=== PATIENT | male | born 1945 | race Caucasian/White ===

== ENCOUNTER → 2024-04-21 | Outpatient (CLI) | payer MEDICARE, SELFPAY ==
--- NOTE | 2024-04-21 | IMM_PTH ---
PATIENT: BENITA GARCIA LOC: [facility] U#:[id number] AGE/SX: 78/M ROOM: RE04/21/[address]: Dr. Burke Bentley MD : 1945 BED: DIS: 04/21/2024 SPEC #: [id number] RECD: 04/25/24 12:24 STATUS: ELA REQ #: [id number] FRANCISCO: 04/21/24 00:[address]: Burke Bentley DEPT: IMMUNOHISTOCHEMISTRY RECD BY: Raji Penn Tissues: D - PROSTATE LEFT E - PROSTATE LEFT F - PROSTATE LEFT Procedures: CD45 (add) CK8 (add) Vimentin (add) Pankeratin (initial) CD68 (ADD) PHYSICIAN & INSTITUTION [place] [address] SPECIMEN INFORMATION: Tissue Source: D- Left apex, E- Left mid, F- Left base Clinical Info: Elevated PSA Specimen Number: [id number] D, E, F CPT code: 16202u5,46273w44 METHODOLOGY: Deparaffinized sections of prefer/formalin-fixed tissue or PAP/DQ stained slides are incubated with monoclonal/polyclonal antibodies/oligonucleotide probes. Localization is made via biotin free immunoperoxidase method. Appropriate controls are performed and reacted as expected. Results on target cell population are indicated in the following table: RESULTS: ANTIBODY / CLONE RESULT Block D AE1-3 (AE1/AE3/PCK26) negative CK8 ([id number]) negative CD45 (RP2/18) positive Vimentin (V9) positive CD68 (KP-1) positive Block E AE1-3 (AE1/AE3/PCK26) negative CK8 ([id number]) negative CD45 (RP2/18) positive Vimentin (V9) positive CD68 (KP-1) positive Block F AE1-3 (AE1/AE3/PCK26) negative CK8 (89ziwlL16) negative CD45 (RP2/18) positive Vimentin (V9) positive CD68 (KP-1) positive These tests were developed and their performance characteristics determined by [facility]. They may not have been cleared or approved by the U.[place]. Food and Drug Administration. The FDA has determined that such clearance or approval is not necessary. The above immunohistochemical/dualISH markers are ordered and reviewed by the Pathologist. INTERPRETATION: D. Prostate, left apex, core biopsy: Negative for malignancy. Chronic inflammation. See comment. E. Prostate, left mid, core biopsy: Negative for malignancy. Chronic inflammation. See comment. F. Prostate, left base, core biopsy: Negative for malignancy. Chronic inflammation. See comment. COMMENT: Findings may represent previous procedure related changes. VIVI/ 04/26/2024
--- NOTE | 2024-04-21 08:00 | PROSBIL_PTH ---
PATIENT: BENITA GARCIA LOC: [facility] U#:[id number] AGE/SX: 78/M ROOM: RE04/21/[address]: Dr. Burke Bentley MD : 1945 BED: DIS: 04/21/2024 SPEC #: [id number] RECD: 04/21/24 15:00 STATUS: ELA SANTACRUZ #: [id number] FRANCISCO: 04/21/24 08:[address]: Burke Bentley DEPT: SURGICAL PATHOLOGY RECD BY: Deborah Abdullahi Tissues: A - PROSTATE RIGHT B - PROSTATE RIGHT C - PROSTATE RIGHT D - PROSTATE LEFT E - PROSTATE LEFT F - PROSTATE LEFT Procedures: PROSTATE BX HEADER OPERATION: Prostate biopsy PRE-OP DIAGNOSIS: Elevated PSA TISSUE SUBMITTED: A - Right apex, B - Right mid, C - Right base, D - Left apex, E - Left mid, F - Left base MICROSCOPIC DIAGNOSIS A. Right prostate, apex, core biopsy: Prostatic adenocarcinoma. [place] grade: 4+3=7 Number of cores involved:1/1 Proportion of tissue involved: >95% Perineural invasion: Not identified. Greatest tumor length: 1.0 cm B. Right prostate, mid, core biopsy: Prostatic adenocarcinoma. Era grade: 4+3=7 Number of cores involved: 2/2 Proportion of tissue involved: >95% Perineural invasion: Present, frequent Greatest tumor length: 1.0cm C. Right prostate, base, core biopsy: Prostatic adenocarcinoma. Era grade: 4+3=7 Number of cores involved:2/2 Proportion of tissue involved: >95 % Perineural invasion: Present, focal Greatest tumor length: 1.1 cm D. Left prostate, apex, core biopsy: Prostatic tissue, negative for malignancy. Focal moderate chronic inflammation. See comment. E. Left prostate, mid, core biopsy: Prostatic tissue, negative for malignancy. Focal moderate chronic inflammation and giant cell reaction. See comment. F. Left prostate, base, core biopsy: Prostatic tissue, negative for malignancy. Focal moderate chronic inflammation and giant cell reaction. See comment. SJ/mr 04/25/2024 COMMENT D,E&F. Immunohistochemistry ([id number]) supports the above diagnosis. Findings may represent previous procedure related changes. Please make reference to previous specimen [id number], prostate chips, transurethral resection with diagnosis of benign prostatic hyperplasia, glandular and stromal type. Case has been reviewed in consultation with Dr. Cavazos who concurs with the above diagnosis. IDC:[email or web address] MICROSCOPIC DESCRIPTION Slides are reviewed. GROSS DESCRIPTION A - Received is one container designated prostate, right apex. The specimen consists of one elongated fragments of light gardner-white soft tissue measuring 1.3 cm in length and 0.1 cm in diameter. The specimen is totally submitted in one cassette. B - Received is one container designated prostate, right mid. The specimen consists of two elongated fragments of light gardner-white soft tissue each measuring 1.2 cm in length and 0.1 cm in diameter. The specimen is totally submitted in one cassette. C - Received is one container designated prostate, right base. The specimen consists of two elongated fragments of light gardner-white soft tissue each measuring 1.4 cm in length and 0.1 cm in diameter. The specimen is totally submitted in one cassette. D - Received is one container designated prostate, left apex. The specimen consists of one elongated fragments of light gardner-white soft tissue measuring 1.1 cm in length and 0.1 cm in diameter. The specimen is totally submitted in one cassette. E - Received is one container designated prostate, left mid. The specimen consists of two elongated fragments of light gardner-white soft tissue measuring 1.0 and 1.2 cm in length and 0.1 cm in diameter. The specimen is totally submitted in one cassette. F - Received is one container designated prostate, left base. The specimen consists of two elongated fragments of light gardner-white soft tissue measuring 1.2 and 1.5 cm in length and 0.1 cm in diameter. The specimen is totally submitted in one cassette. / VIVI/ 04/22/2024 TC:0 [facility]: [id number] [id number] ADDENDUM ADDENDUM ADDENDUM ADDENDUM ADDENDUM ADDENDUM ADDENDUM ADDENDUM ADDENDUM ADDENDUM ADDENDUM ADDENDUM ADDENDUM ADDENDUM ADDENDUM ADDENDUM ADDENDUM ADDENDUM ADDENDUM ADDENDUM ADDENDUM ADDENDUM ADDENDUM ADDENDUM ADDENDUM ADDENDUM ADDENDUM ADDENDUM ADDENDUM ADDENDUM ADDENDUM ADDENDUM ADDENDUM ADDENDUM ADDENDUM ADDENDUM ADDENDUM 05/31/2024 08:45 ADDENDUM 05/31/2024 08:45 ADDENDUM 05/31/2024 08:45 ADDENDUM 05/31/2024 08:45 ADDENDUM 05/31/2024 08:45 This addendum is added to incorporate an outside pathology consultation report. The case was examined at [facility] (#[id number]) and the following diagnosis was rendered. FINAL DIAGNOSIS: A. Prostate, right apex, core biopsy: Prostatic adenocarcinoma, [place] score 3+4=7( Group Grade 2), involving 95% of tissue. B. Prostate, right mid, core biopsy: Prostatic adenocarcinoma, Era score 4+3=7( Group Grade 3), involving 95% of tissue. C. Prostate, right base, core biopsy: Prostatic adenocarcinoma, [place] score 4+3=7( Group Grade 3), involving 95% of tissue. D. Prostate, left apex, core biopsy: Benign prostatic tissue. E. Prostate, left mid, core biopsy: Bening prostatic tissue. F. Prostate, left base, core biopsy: Bening prostatic tissue. PROSTATE CANCER BIOPSY SUMMARY Number of cores examined: 10 Number of cores positive: 5 Highest grade group: 3 Highest % of core involvement: 95% Unfavorable histology: Present (26-50%) Borderline histology: Not applicable Large cribriform pattern 4: Present Intraductal carcinoma: Present Please see complete above mentioned consultation report in EMR
== END | disposition home or self-care (01) ==
PROVIDERS: Referring Provider Urology; Visit Provider Urology
DX: R97.20 Elevated prostate specific antigen [PSA] (principal)
CPT/HCPCS: 88305; 88341; 88342; G0416

== ENCOUNTER → 2024-05-06 | Outpatient (CLI) | payer MEDICARE, SELFPAY ==
--- NOTE | 2024-05-06 08:06 | NM_ITS ---
CLINICAL: 78-year-old male with history of primary prostate carcinoma. WHOLE BODY 99m Tc MDP RADIONUCLIDE BONE SCINTIGRAPHY COMPARISON: None available FINDINGS: Following the intravenous administration of 25.4 mCi of 99m Tc MDP, whole body bone images reveal: 1. Increased radiopharmaceutical concentration is defined in the acromioclavicular and sternoclavicular compartments of both shoulders, the medial glenohumeral compartment of the left shoulder, the wrist articulations bilaterally, the fifth and 10th thoracic vertebra posteriorly on the right, the patellofemoral compartment of the left knee, the bilateral midfoot, the posterior lateral compartment of the left ankle. 2. Enhanced uptake is identified in the distal right femoral metaphysis. 3. The remaining skeletal structures are scintigraphically unremarkable with normal-appearing renal images and urinary bladder activity identified. NM/Bone Scan Whole Body IMPRESSION: 1. The increase in tracer uptake defined in the bilateral shoulders, the wrists, thoracic spine, the left knee and ankle articulation, bilateral midfoot is commensurate with degenerative arthrosis. 2. Increased radiopharmaceutical defined in the distal right femoral metaphysis is of uncertain etiology. Plain film radiography correlation is recommended. 3. There is no scintigraphic evidence of diffuse axial skeletal metastatic disease on the present examination. Electronically Signed: Ab Wilson DO at 14:28 EDT ,
== END | disposition home or self-care (01) ==
LOC: NM 08:00
PROVIDERS: PCP Physician Assistant; Referring Provider Urology; Visit Provider Urology
DX: C61 Malignant neoplasm of prostate (principal)
CPT/HCPCS: 78306; A9503

== ENCOUNTER → 2024-05-11 | Outpatient (CLI) | payer MEDICARE, SELFPAY ==
--- NOTE | 2024-05-11 14:03 | CT_ITS ---
STUDY: CT ABDOMEN AND PELVIS WITH CONTRAST REASON FOR EXAM: Male, 78 years old. PROSTATE CA RADIATION DOSAGE (If Supplied By Facility): CTDIvol = ( 17.90 ) mGy, DLP = ( 1167.32 ) mGycm TECHNIQUE: Transaxial images were obtained from the dome of the diaphragm to the symphysis pubis without oral contrast. IV 100mL Isovue-300 was administered. Sagittal and coronal images were reconstructed. Individualized dose optimization techniques were used for this CT. COMPARISON: Comparison is made with prior study dated August 07, 2017. FINDINGS: The visualized lung bases are unremarkable. Coronary artery calcification. Dual-chamber pacemaker device is seen. Normal liver. There are surgical clips in the gallbladder fossa consistent with a prior cholecystectomy. Normal spleen. Normal pancreas. Normal bilateral adrenal glands. Normal right kidney. A 1 cm cyst is seen in the posterior upper pole of the left kidney. Normal visualized stomach. Normal small intestine. Normal colon. The patient is status post appendectomy. There is scattered atherosclerotic calcification of the abdominal aorta, without a demonstrated aneurysm. Normal inferior vena cava. Normal retroperitoneum. Nonspecific increased haziness in the root of the mesenteric fat. This is a nonspecific finding. Small caliber urinary bladder. Diffuse bladder wall thickening. Evidence of prior TURP. Prostatic calcification. There is a left-sided inguinal hernia containing adipose tissue. There are mild degenerative changes of the visualized lumbar spine. CT/Abdomen/Pelvis W IV Cont ONLY IMPRESSION: Status post cholecystectomy and appendectomy. Nonspecific increased markings in the root of the mesentery suggestive of a nonspecific enterocolitis. Small caliber urinary bladder with diffuse bladder wall thickening. Prior TURP. Electronically Signed: Mohsen Parikh MD at 14:59 EDT ,
[2024-05-11 14:28] LABS: CREATININE FINGERSTICK < 1.0 mg/dL (0.70-1.30); EGFR FINGERSTICK > 60.0000 mL/min (>60)
== END | disposition home or self-care (01) ==
LOC: CT 14:01
PROVIDERS: PCP Physician Assistant; Referring Provider Urology; Visit Provider Urology
DX: C61 Malignant neoplasm of prostate (principal)
CPT/HCPCS: 74177; Q9967